=== PATIENT | female | born 1980 | race Caucasian/White ===

== ENCOUNTER 2017-11-27 00:41 | Outpatient (CLI) | payer OTHER | END 2017-11-27 23:59 | disposition home or self-care (01) | LOC: DIABETIC 00:41 | PROVIDERS: ATTEND Family Medicine | DX: E11.9 Type 2 diabetes mellitus without complications (principal) | CPT/HCPCS: G0108 ==

== ENCOUNTER 2023-07-01 17:16 | Emergency (ER) | payer BC, OTHER ==
[~2023-07-01] VITALS: Ht 157.5 cm; Wt 63.9 kg
[2023-07-01 18:57] VITALS: BP 148/89; PULSE 101; RESP 16; TEMP 98.2; O2SAT 99
--- NOTE | 2023-07-01 20:56 | NUR ---
agree with assessment of [employer]
== END 2023-07-01 19:01 | disposition home or self-care (01) ==
LOC: ER 17:17
DX: S43.491A Other sprain of right shoulder joint, initial encounter (principal); W18.39XA Other fall on same level, initial encounter; Y93.89 Activity, other specified; Y92.89 Other specified places as the place of occurrence of the external cause; Y99.8 Other external cause status
CPT/HCPCS: 73030; 99284